=== PATIENT | male | born 1970 | race Caucasian/White ===

== ENCOUNTER → 2016-10-03 | Outpatient (REF) | payer OTHER ==
[~2016-10-03] MED LIST: TRAZ50TA4 PO; no home medications
[2016-10-03 13:50] LABS: ALBUMIN 3.7 GM/DL (3.2-5.2); ALBUMIN/GLOBULIN RATIO 1.03 (1.00-1.93); ALKALINE PHOSPHATASE 92 U/L (45-117); ALT/SGPT 40 U/L (12-78); ANION GAP 8 MEQ/L (8-16); AST/SGOT 14 U/L (15-37); BILIRUBIN,TOTAL 0.3 MG/DL (0.2-1.0); BLOOD UREA NITROGEN 14 MG/DL (7-18); CALCIUM LEVEL 9.2 MG/DL (8.5-10.1); CARBON DIOXIDE LEVEL 27 MEQ/L (21-32); CHLORIDE LEVEL 105 MEQ/L (98-107); CHOLESTEROL LEVEL 203 MG/DL (<200); GLOMERULAR FILTRATION RATE > 60.0 (>60); GLUCOSE, FASTING 102 MG/DL (70-105); POTASSIUM SERUM 4.6 MEQ/L (3.5-5.1); SODIUM LEVEL 140 MEQ/L (136-145); TOTAL PROTEIN 7.3 GM/DL (6.4-8.2); TRIGLYCERIDES LEVEL 138 MG/DL (<150)
== END ==
LOC: M SFHCPLAZ 11:32
PROVIDERS: ATTEND Physician Assistant
DX: F32.9 Major depressive disorder, single episode, unspecified (principal); E78.5 Hyperlipidemia, unspecified; Z72.0 Tobacco use

== ENCOUNTER → 2017-01-02 | Outpatient (REF) | payer OTHER ==
[2017-01-02 13:11] LABS: ALBUMIN 3.5 GM/DL (3.2-5.2); ALBUMIN/GLOBULIN RATIO 0.95 (1.00-1.93); ALKALINE PHOSPHATASE 95 U/L (45-117); ALT/SGPT 32 U/L (12-78); ANION GAP 6 MEQ/L (8-16); AST/SGOT 14 U/L (15-37); BILIRUBIN,TOTAL 0.4 MG/DL (0.2-1.0); BLOOD UREA NITROGEN 12 MG/DL (7-18); CALCIUM LEVEL 8.4 MG/DL (8.5-10.1); CARBON DIOXIDE LEVEL 28 MEQ/L (21-32); CHLORIDE LEVEL 104 MEQ/L (98-107); CHOLESTEROL LEVEL 185 MG/DL (<200); CREATININE FOR GFR 1.14 MG/DL (0.70-1.30); GLOMERULAR FILTRATION RATE > 60.0 (>60); GLUCOSE, FASTING 76 MG/DL (70-105); POTASSIUM SERUM 4.4 MEQ/L (3.5-5.1); SODIUM LEVEL 138 MEQ/L (136-145); TOTAL PROTEIN 7.2 GM/DL (6.4-8.2); TRIGLYCERIDES LEVEL 257 MG/DL (<150)
== END ==
LOC: M SFHCPLAZ 09:42
PROVIDERS: ATTEND Physician Assistant
DX: E78.5 Hyperlipidemia, unspecified (principal); R53.83 Other fatigue

== ENCOUNTER → 2017-04-03 | Outpatient (REF) | payer OTHER ==
[~2017-04-03] MED LIST changes: +LIPI10TA PO; +MECL-68 PO; +MELA5TAB20 PO; +TRAZ50TA11 PO; -TRAZ50TA4 PO; +VITA100067 PO
[2017-04-03 12:29] LABS: ALBUMIN 3.5 GM/DL (3.2-5.2); ALBUMIN/GLOBULIN RATIO 0.92 (1.00-1.93); ALKALINE PHOSPHATASE 92 U/L (45-117); ALT/SGPT 35 U/L (12-78); ANION GAP 6 MEQ/L (8-16); AST/SGOT 16 U/L (15-37); BILIRUBIN,TOTAL 0.4 MG/DL (0.2-1.0); BLOOD UREA NITROGEN 12 MG/DL (7-18); CALCIUM LEVEL 8.7 MG/DL (8.5-10.1); CARBON DIOXIDE LEVEL 26 MEQ/L (21-32); CHLORIDE LEVEL 108 MEQ/L (98-107); CHOLESTEROL LEVEL 163 MG/DL (<200); CREATININE FOR GFR 0.95 MG/DL (0.70-1.30); GLOMERULAR FILTRATION RATE > 60.0 (>60); GLUCOSE, FASTING 82 MG/DL (70-105); POTASSIUM SERUM 4.3 MEQ/L (3.5-5.1); SODIUM LEVEL 140 MEQ/L (136-145); TOTAL PROTEIN 7.3 GM/DL (6.4-8.2); TRIGLYCERIDES LEVEL 257 MG/DL (<150)
== END ==
LOC: M SFHCPLAZ 10:33
PROVIDERS: ATTEND Physician Assistant
DX: E78.5 Hyperlipidemia, unspecified (principal)

== ENCOUNTER 2017-04-07 11:59 | Emergency (ER) | payer OTHER ==
[~2017-04-07] VITALS: Ht 185.4 cm; Wt 110.5 kg
[~2017-04-07 11:59] MED LIST changes: -LIPI10TA PO; -MECL-68 PO; -MELA5TAB20 PO; -VITA100067 PO
[2017-04-07] MEDS ORDERED: MELA5TAB20 PO (12:06)
[2017-04-07] MEDS ORDERED: LIPI10TA PO (12:06)
[2017-04-07] MEDS ORDERED: KETOROLAC 30 MG/ML VIAL (J1885) IV ONE (13:15)
[2017-04-07] MEDS ORDERED: METOCLOPRAMIDE INJ 10MG/2ML VIAL (J2765) IV ONE (13:15)
[2017-04-07] MEDS ORDERED: NS 1,000 ML IV ONE (13:15)
[2017-04-07 15:20] VITALS: BP 130/89
--- NOTE | 2017-04-07 20:03 | REP ---
CT BRAIN WITHOUT CONTRAST: CT brain is performed without IV contrast. Ventricles are normal in size and position. There is no midline shift. No abnormal densities are seen. There is no acute hemorrhage. There is no extra-axial fluid collection. Hollins-white differentiation is well maintained. There is mild scattered fluid in the left ethmoid sinuses. IMPRESSION: Essentially negative noncontrast CT brain except for mild scattered fluid in the left ethmoid sinuses. Signed by Morales Hollins MD 04/08/2017 01:05 P
== END 2017-04-07 15:25 | disposition home or self-care (01) ==
LOC: M ED 11:59
DX: G44.209 Tension-type headache, unspecified, not intractable (principal); F17.210 Nicotine dependence, cigarettes, uncomplicated; Z88.8 Allergy status to other drugs, medicaments and biological substances; Z79.899 Other long term (current) drug therapy
CPT/HCPCS: 70450; 96361; 96374; 96375; 99283; J1885; J2765

== ENCOUNTER 2017-04-10 17:51 | Emergency (ER) | payer OTHER ==
[~2017-04-10] VITALS: Ht 188 cm; Wt 110.8 kg
[~2017-04-10 17:51] MED LIST changes: +LIPI10TA PO; +MELA5TAB20 PO
[2017-04-10] MEDS ORDERED: VITA100067 PO (18:17)
[2017-04-10] MEDS ORDERED: MECLIZINE 25 MG TABLET PO ONE (19:00)
[2017-04-10 19:16] VITALS: BP 131/91
[2017-04-10] MEDS ORDERED: MECL-68 PO (19:17)
--- NOTE | 2017-04-11 11:27 | ECGEPIP ---
Stationary ECG Study [facility] - ED Test Date: 2017-04-10 Pat Name: JONY LEO Department: Room: - Gender: M Associate Sales Representative: NINFA : [id number] Requested By: AI Muller Order Number: [id number] Reading MD: Zuleima Singh Measurements Intervals [place] Rate: 84 P: 71 CO: 149 QRS: 70 QRSD: 96 T: 44 QT: 331 QTc: 392 Interpretive Statements SINUS RHYTHM WITH SINUS ARRHYTHMIA DECREASED RATE 03/31/13 Electronically Signed On 04-11-2017 11:27:34 EDT by Zuleima Singh
== END 2017-04-10 19:31 | disposition home or self-care (01) ==
LOC: M ED 17:51
DX: H83.03 Labyrinthitis, bilateral (principal); H81.393 Other peripheral vertigo, bilateral; I25.10 Atherosclerotic heart disease of native coronary artery without angina pectoris; M54.9 Dorsalgia, unspecified; F17.210 Nicotine dependence, cigarettes, uncomplicated; Z88.8 Allergy status to other drugs, medicaments and biological substances; Z79.899 Other long term (current) drug therapy

== ENCOUNTER 2017-06-06 20:37 | Emergency (ER) | payer OTHER ==
[~2017-06-06] VITALS: Ht 188 cm; Wt 111.4 kg
[~2017-06-06 20:37] MED LIST changes: +MECL-68 PO; +VITA100067 PO
--- NOTE | 2017-06-06 22:30 | REPUSA ---
Clinical history: injury, swelling. Findings: Real-time ultrasound imaging of the testicles and scrotum was performed. The right testicle measures 4.6 x 2.5 x 2.9 cm. The left testicle measures 4.7 x 2.7 x 2.5 cm. There is a ill-defined h ypoechoic lesion in the anterior right testicle measuring 1.9 x 1.4 x 0.6 cm. No significant color Do ppler vascularity seen within this lesion. The left testicle demonstrates normal echo texture and ech ogenicity. Normal color Doppler flow and arterial waveforms is otherwise seen bilaterally. No fluid c ollections are seen. Impression: 1. Focal hypoechoic lesion in the anterior right testicle without significant internal vascularity, s uspicious for posttraumatic testicular contusion or hematoma. 2. No evidence of testicular torsion. 3. No fluid collections identified.
[2017-06-06 23:18] VITALS: BP 149/84
[2017-06-07] MEDS ORDERED: NORCO 5/325MG TABLET (BULK FOR ED) PO ONE (00:15)
[2017-06-07] MEDS ORDERED: NORCO, ANEXSIA 5/325MG TABLET (HYDROcodone/ACETAMINOPHEN) As Ordered ONE (00:29)
--- NOTE | 2017-06-07 08:12 | ED PDOC ---
Post-Departure Follow-Up This record was completeed partially or completely on paper due to electronic EMR downtime. Please see the attached scanned paper chart. Zuleima Singh MD Jun 07, 2017 08:12
== END 2017-06-07 01:00 | disposition home or self-care (01) ==
LOC: M ED 20:37
DX: S30.22XA Contusion of scrotum and testes, initial encounter (principal); Z72.0 Tobacco use; W50.0XXA Accidental hit or strike by another person, initial encounter; Y92.89 Other specified places as the place of occurrence of the external cause; Y93.72 Activity, wrestling; Y99.9 Unspecified external cause status

== ENCOUNTER → 2017-06-21 | Outpatient (REF) | payer OTHER | LOC: M SFHCPLAZ 14:21 | PROVIDERS: ATTEND Family Medicine | DX: Z20.2 Contact with and (suspected) exposure to infections with a predominantly sexual mode of transmission (principal); Z53.9 Procedure and treatment not carried out, unspecified reason ==

== ENCOUNTER → 2017-06-25 | Outpatient (REF) | payer OTHER | LOC: M SFHCPLAZ 12:55 | PROVIDERS: ATTEND Family Medicine | DX: Z20.2 Contact with and (suspected) exposure to infections with a predominantly sexual mode of transmission (principal) ==

== ENCOUNTER → 2017-08-07 | Outpatient (CLI) | payer OTHER ==
--- NOTE | 2017-08-07 15:49 | REP ---
Clinical: Pain. Technique: AP, lateral, bilateral oblique and sunrise views of the right knee. Findings: Minimal tibiofemoral joint space narrowing cannot be excluded. Remainder examination appears normal for age. No acute fracture dislocation. Impression: Relatively age-appropriate examination. Cannot exclude mild tibiofemoral joint space narrowing. Signed by Robe Warner MD 08/07/2017 03:40 P
== END ==
LOC: M RAD 14:12
PROVIDERS: ATTEND Family Medicine
DX: M25.561 Pain in right knee (principal)

== ENCOUNTER → 2017-11-26 | Outpatient (REF) | payer OTHER ==
[2017-11-26 11:51] LABS: TESTOSTERONE 205 NG/DL (241-827); TOTAL 25(OH) VITAMIN D 30.9 NG/ML (30.0-100.0)
[2017-11-26 11:55] LABS: CHOLESTEROL LEVEL 148 MG/DL (<200); CHOLESTEROL RISK RATIO 3.894 (<5); HDL CHOLESTEROL 38 MG/DL (>40); LDL CHOLESTEROL 69.8 MG/DL (<100); NON-HDL-C 110 MG/DL; PSA SCREENING 1.66 NG/ML (< 4.0); TRIGLYCERIDES LEVEL 201 MG/DL (<150)
[2017-11-26 12:12] LABS: ESTIMATED AVERAGE GLUCOSE 120 MG/DL (60-110); HEMOGLOBIN A1c 5.8 %
== END ==
LOC: M SFHCPLAZ 09:43
DX: Z12.5 Encounter for screening for malignant neoplasm of prostate (principal); E78.2 Mixed hyperlipidemia; E29.1 Testicular hypofunction; E55.9 Vitamin D deficiency, unspecified
CPT/HCPCS: 84403

== ENCOUNTER → 2018-01-21 | Outpatient (CLI) | payer OTHER ==
[~2018-01-21] MED LIST changes: +ISOVUE-370 76% 100ML VIAL (Q9967) As Ordered; -LIPI10TA PO; -MECL-68 PO; -MELA5TAB20 PO; -TRAZ50TA11 PO; -VITA100067 PO; -no home medications
== END ==
LOC: M RAD 08:01
DX: J34.1 Cyst and mucocele of nose and nasal sinus (principal); J38.1 Polyp of vocal cord and larynx; J32.0 Chronic maxillary sinusitis; J34.2 Deviated nasal septum
CPT/HCPCS: Q9967

== ENCOUNTER 2018-03-01 18:52 | Emergency (ER) | payer OTHER ==
[2018-03-01 20:49] LABS: BASO % 0.3 % (0.0-1.0); EOS # 0.3 10^3/uL (0.0-0.50); EOS % 1.9 % (0.0-3.0); HEMATOCRIT 47.4 % (42.0-52.0); HEMOGLOBIN 16.8 g/dl (13.5-17.5); IMMATURE GRANULOCYTE % 0.5 % (0-3.0); LYMPH # 2.1 10^3/uL (1.5-4.5); LYMPH % 16.4 % (24.0-44.0); MEAN CORPUSCULAR HEMOGLOBIN 31.7 pg (27.0-33.0); MEAN CORPUSCULAR HGB CONC 35.4 g/dl (32.0-36.5); MEAN CORPUSCULAR VOLUME 89.4 fl (80.0-96.0); MONO # 1.3 10^3/uL (0.0-0.8); MONO % 10.4 % (0.0-5.0); NEUTROPHILS # 9.1 10^3/uL (1.8-7.7); NEUTROPHILS % 70.5 % (36.0-66.0); PLATELET COUNT, AUTOMATED 305 10^3/uL (150-450); RED CELL DISTRIBUTION WIDTH 11.9 % (11.5-14.5); WHITE BLOOD COUNT 12.8 10^3/uL (4.0-10.0)
[2018-03-01 20:54] LABS: APPEARANCE, URINE CLEAR (CLEAR); BACTERIA, URINE AUTO NEGATIVE (NEGATIVE); BILIRUBIN, URINE AUTO NEGATIVE (NEGATIVE); BLOOD, URINE BLOOD 1+ (NEGATIVE); COLOR, URINE YELLOW (YELLOW); GLUCOSE, URINE (UA) AUTO NEGATIVE (NEGATIVE); KETONE, URINE AUTO NEGATIVE (NEGATIVE); LEUKOCYTE ESTERASE, URINE AUTO NEGATIVE (NEGATIVE); MUCUS, URINE SMALL (NEGATIVE); NITRITE, URINE AUTO NEGATIVE (NEGATIVE); PROTEIN, URINE AUTO NEGATIVE (NEGATIVE); RBC, URINE AUTO 5 /HPF (0-3); SPECIFIC GRAVITY URINE AUTO 1.019 (1.002-1.035); SQUAMOUS EPITHELIAL CELL UR AU 0 /HPF (0-6); WBC, URINE AUTO 0 /HPF (0-3)
[2018-03-01 21:08] LABS: ANION GAP 6 MEQ/L (8-16); BLOOD UREA NITROGEN 8 MG/DL (7-18); CALCIUM LEVEL 8.4 MG/DL (8.5-10.1); CARBON DIOXIDE LEVEL 27 MEQ/L (21-32); CHLORIDE LEVEL 102 MEQ/L (98-107); CREATININE FOR GFR 1.13 MG/DL (0.70-1.30); GLOMERULAR FILTRATION RATE > 60.0 (>60); GLUCOSE, FASTING 113 MG/DL (70-100); POTASSIUM SERUM 4.2 MEQ/L (3.5-5.1); SODIUM LEVEL 135 MEQ/L (136-145)
[2018-03-01] MEDS: NS 1,000 ML IV (21:10)
[2018-03-01] MEDS: ONDANSETRON 4MG/2ML VIAL (J2405) IV (21:10)
[2018-03-01] MEDS: KETOROLAC 30 MG/ML VIAL (J1885) IV (21:11)
[2018-03-01] MEDS: KETOROLAC TROMETHAMINE 10 MG TAB PO (22:46)
[2018-03-01] MEDS: METOCLOPRAMIDE 10 MG TAB PO (22:46)
== END 2018-03-01 22:55 | disposition home or self-care (01) ==
LOC: M ED 18:52
DX: G43.909 Migraine, unspecified, not intractable, without status migrainosus (principal); R50.9 Fever, unspecified; J44.9 Chronic obstructive pulmonary disease, unspecified; E78.5 Hyperlipidemia, unspecified; Z72.0 Tobacco use; Z79.899 Other long term (current) drug therapy; Z88.8 Allergy status to other drugs, medicaments and biological substances
CPT/HCPCS: J2405

== ENCOUNTER 2018-03-26 10:00 | Day surgery (SDC) | payer OTHER ==
[2018-03-26] MEDS: LR 1,000 ML IV (11:02)
[2018-03-26] MEDS ORDERED: REMIFENTANIL 1MG 3ML VIAL As Ordered (12:10)
[2018-03-26] MEDS: dexameTHASONE 4 MG/ML 1ML VIAL (J1100) IV (12:20)
[2018-03-26] MEDS ORDERED: ePHEDrine SULFATE 25 MG/5 ML(5MG/ML) SYRINGE As Ordered (12:34)
[2018-03-26] MEDS: OXYMETAZOLINE NASAL SPRAY (AFRIN) As Ordered (12:36)
[2018-03-26] MEDS: METHYLENE BLUE 0.5% (5MG/ML) 10 ML AMP (PROVAYBLUE)(Q9968 PER 1MG) As Ordered (12:36)
[2018-03-26] MEDS ORDERED: PHENYLephrine HCL 500 MCG/5 ML (100MCG/ML) SYRINGE (J2370) As Ordered (12:39)
[2018-03-26] MEDS: LIDOCAINE W/EPINEPHRINE 1% 20ML VIAL As Ordered (12:57)
[2018-03-26] MEDS ORDERED: ROCURONIUM BROMIDE 50 MG/5 ML VIAL As Ordered (12:58)
[2018-03-26] MEDS ORDERED: LIDOCAINE 2% INJ 100 MG/5 ML SDV (FOR ANES.) As Ordered (12:58)
[2018-03-26] MEDS ORDERED: ONDANSETRON 4MG/2ML VIAL (J2405) As Ordered (12:58)
[2018-03-26] MEDS ORDERED: MIDAZOLAM INJ 2 MG/2 ML VIAL (J2250) As Ordered (12:58)
[2018-03-26] MEDS ORDERED: dexameTHASONE 4 MG/ML 1ML VIAL (J1100) As Ordered (12:58)
[2018-03-26] MEDS ORDERED: fentaNYL 100 MCG/2 ML INJECTION (J3010) As Ordered (12:58)
[2018-03-26] MEDS ORDERED: LR 1,000 ML IV ×2 (13:30)
[2018-03-26] MEDS ORDERED: ONDANSETRON 4MG/2ML VIAL (J2405) IV (13:30)
[2018-03-26] MEDS ORDERED: fentaNYL 100 MCG/2 ML INJECTION (J3010) IV (13:30)
== END 2018-03-26 14:13 | disposition home or self-care (01) ==
LOC: M SDC 10:00
DX: J38.1 Polyp of vocal cord and larynx (principal); J37.0 Chronic laryngitis; I25.2 Old myocardial infarction; E78.5 Hyperlipidemia, unspecified; F41.9 Anxiety disorder, unspecified; Z91.030 Bee allergy status; F17.210 Nicotine dependence, cigarettes, uncomplicated; Z79.899 Other long term (current) drug therapy
CPT/HCPCS: 31536

== ENCOUNTER 2019-02-13 08:51 | Emergency (ER) | payer OTHER ==
[~2019-02-13] VITALS: Ht 188 cm; Wt 109.2 kg
[2019-02-13 08:51] VITALS: BP 129/75
[~2019-02-13 08:51] MED LIST changes: +AMIT75TA PO; +AZEL1SPR3; +DULO1CAP3 PO; +FLUTISP; +HYDR-3713 PO; -ISOVUE-370 76% 100ML VIAL (Q9967) As Ordered; +KETO10TAB PO; +LEVOTAB10 PO; +LIPI10TA PO; +MECL-68 PO; +MELA5TAB20 PO; +REGL10TA6 PO; +TRAM50TA2 PO; +TRAZ-252 PO; +VITA100067 PO; +no home medications
[2019-02-13] MEDS ORDERED: metroNIDAZOLE (FLAGYL) 500 MG TAB PO ONE (09:30)
== END 2019-02-13 09:42 | disposition home or self-care (01) ==
LOC: M ED 08:51
DX: A59.9 Trichomoniasis, unspecified (principal); I25.2 Old myocardial infarction; F41.9 Anxiety disorder, unspecified; E78.5 Hyperlipidemia, unspecified; G89.29 Other chronic pain; M54.9 Dorsalgia, unspecified; Z72.0 Tobacco use; Z79.899 Other long term (current) drug therapy; Z91.030 Bee allergy status; Z88.8 Allergy status to other drugs, medicaments and biological substances

== ENCOUNTER 2021-12-31 13:15 | Emergency (ER) | payer OTHER ==
[~2021-12-31] VITALS: Ht 188 cm; Wt 114.0 kg
[~2021-12-31 13:15] MED LIST changes: -DULO1CAP3 PO; +DULO1CAP6 PO; +ELIQ2.5T PO; -MECL-68 PO; +MECL1TAB31 PO
[2021-12-31] MEDS ORDERED: ISOVUE-370 76% 100ML VIAL As Ordered ONE (13:44)
[2021-12-31 13:49] LABS: BASO # 0.1 10^3/uL (0.0-0.2); BASO % 0.5 % (0.0-1.0); EOS # 0.2 10^3/uL (0.0-0.5); EOS % 1.8 % (0.0-3.0); HEMATOCRIT 45.3 % (42.0-52.0); HEMOGLOBIN 15.6 g/dl (13.5-17.5); LYMPH # 2.9 10^3/uL (1.5-5.0); LYMPH % 28.9 % (24.0-44.0); MEAN CORPUSCULAR HEMOGLOBIN 32.4 pg (27.0-33.0); MEAN CORPUSCULAR HGB CONC 34.4 g/dl (32.0-36.5); MONO # 0.7 10^3/uL (0.0-0.8); MONO % 7.5 % (2.0-8.0); NEUTROPHILS % 60.8 % (36.0-66.0); PLATELET COUNT, AUTOMATED 302 10^3/uL (150-450); RED BLOOD COUNT 4.82 10^6/uL (4.30-6.10); WHITE BLOOD COUNT 9.9 10^3/uL (4.0-10.0)
[2021-12-31 14:15] LABS: INR 0.91; PROTHROMBIN TIME 12.7 SECONDS (12.7-14.5)
[2021-12-31 14:16] LABS: PARTIAL THROMBOPLASTIN TIME 26.3 SECONDS (25.9-37.0)
[2021-12-31 14:18] LABS: ALBUMIN 3.4 GM/DL (3.2-5.2); ALT/SGPT 34 U/L (12-78); AMYLASE 57 U/L (25-115); BILIRUBIN,DIRECT < 0.1 MG/DL (0.0-0.2); BILIRUBIN,TOTAL 0.3 MG/DL (0.2-1.0); BLOOD UREA NITROGEN 13 MG/DL (7-18); CALCIUM LEVEL 8.6 MG/DL (8.5-10.1); CARBON DIOXIDE LEVEL 29 MEQ/L (21-32); CHLORIDE LEVEL 106 MEQ/L (98-107); CREATININE FOR GFR 1.07 MG/DL (0.70-1.30); GLOMERULAR FILTRATION RATE > 60.0 (>56); GLUCOSE, FASTING 99 MG/DL (70-100); LIPASE 323 U/L (73-393); SODIUM LEVEL 138 MEQ/L (136-145); TOTAL PROTEIN 6.9 GM/DL (6.4-8.2)
[2021-12-31 16:15] VITALS: BP 141/88
== END 2021-12-31 16:30 | disposition home or self-care (01) ==
LOC: M ED 13:15 → EDBD 13:15 → M ED 16:30
DX: S80.12XA Contusion of left lower leg, initial encounter (principal); S80.11XA Contusion of right lower leg, initial encounter; V03.90XA Pedestrian on foot injured in collision with car, pick-up truck or van, unspecified whether traffic or nontraffic accident, initial encounter; Y92.099 Unspecified place in other non-institutional residence as the place of occurrence of the external cause; Y93.9 Activity, unspecified; Y99.9 Unspecified external cause status; I25.10 Atherosclerotic heart disease of native coronary artery without angina pectoris; E11.9 Type 2 diabetes mellitus without complications; I10 Essential (primary) hypertension; J44.9 Chronic obstructive pulmonary disease, unspecified; Z79.01 Long term (current) use of anticoagulants; Z79.899 Other long term (current) drug therapy; Z91.030 Bee allergy status; Z88.8 Allergy status to other drugs, medicaments and biological substances
CPT/HCPCS: 71045; 72128; 72170; 73552; 73564; 73590; 73610; 75635; 80047; 80048; 80076; 82150; 82550; 83690; 85025; 85610; 85730; 86850; 86900; 86901; 93041; 94760; 99285; Q9967

== ENCOUNTER → 2022-03-05 | Outpatient (CLI) | payer OTHER | LOC: M RAD 08:27 | PROVIDERS: ATTEND Internal Medicine Hematology & Oncology | DX: Z86.718 Personal history of other venous thrombosis and embolism (principal) ==

== ENCOUNTER 2022-09-05 11:51 | Emergency (ER) | payer OTHER ==
[~2022-09-05] VITALS: Ht 188 cm; Wt 111.0 kg
[~2022-09-05 11:51] MED LIST changes: +ELIQ5TAB PO; +EPIPENSY SC
[2022-09-05 11:53] VITALS: BP 132/70
[2022-09-05] MEDS ORDERED: DULO1CAP5 (12:08)
[2022-09-05] MEDS ORDERED: TRAZ-252 (12:08)
[2022-09-05] MEDS ORDERED: METF-838 (12:08)
[2022-09-05] MEDS ORDERED: GABA600T4 (12:08)
== END 2022-09-05 14:18 | disposition left against medical advice (07) ==
LOC: M ED 11:51
DX: Z53.21 Procedure and treatment not carried out due to patient leaving prior to being seen by health care provider (principal)

== ENCOUNTER 2022-12-10 21:03 | Emergency (ER) | payer OTHER ==
[~2022-12-10] VITALS: Ht 188 cm; Wt 113.8 kg
[~2022-12-10 21:03] MED LIST changes: +DULO1CAP5; +GABA600T4; +METF-838; +TRAZ-252
[2022-12-10 21:05] VITALS: BP 134/79
== END 2022-12-10 23:29 | disposition left against medical advice (07) ==
LOC: M ED 21:03
DX: Z53.21 Procedure and treatment not carried out due to patient leaving prior to being seen by health care provider (principal)

== ENCOUNTER → 2023-09-18 | Outpatient (REF) ==
[~2023-09-18] MED LIST changes: +MECL-209 PO; -MECL1TAB31 PO
== END ==
LOC: M RAD 12:57
PROVIDERS: ATTEND Internal Medicine
DX: M51.36 Other intervertebral disc degeneration, lumbar region (principal); M54.50 Low back pain, unspecified

== ENCOUNTER → 2024-04-22 | Outpatient (CLI) | payer OTHER | LOC: M RAD 14:37 | PROVIDERS: ATTEND Family Medicine | DX: R60.0 Localized edema (principal); Z86.718 Personal history of other venous thrombosis and embolism ==

== ENCOUNTER 2024-12-02 15:29 | Emergency (ER) | payer MEDICAID, OTHER, SELFPAY ==
[~2024-12-02] VITALS: Ht 188 cm; Wt 109.3 kg
[~2024-12-02 15:29] MED LIST changes: +GABA-1490; -GABA600T4
[2024-12-02 16:34] LABS: BASO % 0.5 % (0.0-1.0); EOS # 0.2 10^3/uL (0.0-0.5); EOS % 2.7 % (0.0-3.0); HEMATOCRIT 41.1 % (42.0-52.0); HEMOGLOBIN 13.8 g/dl (13.5-17.5); LYMPH # 2.5 10^3/uL (1.5-5.0); LYMPH % 29.3 % (24.0-44.0); MEAN CORPUSCULAR HEMOGLOBIN 31.1 pg (27.0-33.0); MEAN CORPUSCULAR HGB CONC 33.6 g/dl (32.0-36.5); MEAN CORPUSCULAR VOLUME 92.6 fl (80.0-96.0); MONO % 11.6 % (2.0-8.0); NEUTROPHILS # 4.7 10^3/uL (1.5-8.5); NEUTROPHILS % 55.5 % (36.0-66.0); PLATELET COUNT, AUTOMATED 311 10^3/uL (150-450); RED BLOOD COUNT 4.44 10^6/uL (4.30-6.10); WHITE BLOOD COUNT 8.5 10^3/uL (4.0-10.0)
[2024-12-02 16:55] LABS: INR 0.89; PROTHROMBIN TIME 12.4 SECONDS (12.5-14.5)
[2024-12-02 16:58] LABS: ALBUMIN 3.2 G/DL (3.2-5.2); ALKALINE PHOSPHATASE 79 U/L (40-129); ALT/SGPT 21 U/L (7.0-40); AST/SGOT 19 U/L (<34); BILIRUBIN,DIRECT 0.1 MG/DL (<0.4); BILIRUBIN,TOTAL 0.3 MG/DL (0.3-1.2); BLOOD UREA NITROGEN 17 MG/DL (9-23); C REACTIVE PROTEIN QUANTITATIV 2.78 MG/DL (<1.0); CALCIUM LEVEL 8.3 MG/DL (8.5-10.1); CARBON DIOXIDE LEVEL 28 MMOL/L (20-31); CHLORIDE LEVEL 105 MMOL/L (98-107); CREATININE FOR GFR 0.91 MG/DL (0.70-1.30); GLOMERULAR FILTRATION RATE > 60.0 (>56); GLUCOSE, FASTING 116 MG/DL (60-100); POTASSIUM SERUM 4.5 MMOL/L (3.5-5.1); SODIUM LEVEL 141 MMOL/L (136-145); TOTAL PROTEIN 6.8 G/DL (5.7-8.2)
[2024-12-02 17:05] LABS: PROCALCITONIN 0.06 ng/ml
[2024-12-02 17:17] LABS: ERYTHROCYTE SEDIMENTATION RATE 26 mm/hr (0-20)
[2024-12-02] MEDS ORDERED: DOXY-442 PO (17:50)
[2024-12-02] MEDS: LIDOCAINE 1% MDV 20ML VIAL SC ONE (18:05)
[2024-12-02 19:00] VITALS: BP 125/74; TEMP 99.5
[2024-12-02 19:02] VITALS: O2SAT 97
== END 2024-12-02 19:09 | disposition home or self-care (01) ==
LOC: EDBD 15:29 → M ED 15:29
DX: L03.116 Cellulitis of left lower limb (principal); L02.612 Cutaneous abscess of left foot; F41.9 Anxiety disorder, unspecified; I25.2 Old myocardial infarction; E11.9 Type 2 diabetes mellitus without complications; J44.9 Chronic obstructive pulmonary disease, unspecified; M54.9 Dorsalgia, unspecified; F17.200 Nicotine dependence, unspecified, uncomplicated; Z79.84 Long term (current) use of oral hypoglycemic drugs; Z79.899 Other long term (current) drug therapy; Z88.8 Allergy status to other drugs, medicaments and biological substances; Z91.030 Bee allergy status

== ENCOUNTER → 2025-02-01 | Outpatient (REF) ==
[~2025-02-01] MED LIST changes: +DOXY-442 PO
== END ==
LOC: M RAD 12:12
PROVIDERS: ATTEND Internal Medicine
DX: M54.2 Cervicalgia (principal); M51.370 Other intervertebral disc degeneration, lumbosacral region with discogenic back pain only; M47.812 Spondylosis without myelopathy or radiculopathy, cervical region

== ENCOUNTER 2025-07-04 20:57 | Emergency (ER) | payer MEDICAID ==
[~2025-07-04] VITALS: Ht 188 cm; Wt 121.4 kg
[2025-07-04 21:03] VITALS: BP 174/87; TEMP 98.9; O2SAT 96
== END 2025-07-04 21:35 | disposition left against medical advice (07) ==
LOC: M ED 20:57
DX: Z53.21 Procedure and treatment not carried out due to patient leaving prior to being seen by health care provider (principal)